=== PATIENT | female | born 1990 | race Caucasian/White ===

== ENCOUNTER 2019-09-25 08:31 | Emergency (ER) | payer OTHER ==
[2019-09-25] MEDS ORDERED: BUPIVACAINE 0.5% PF 30 ML VIAL SUBQ ONE (08:56)
[2019-09-25] MEDS ORDERED: BUFFERED LIDOCAINE 10 ML SYRINGE SUBQ STA (08:56)
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
[2019-09-25 10:07] VITALS: BP 130/84
== END 2019-09-25 10:08 | disposition home or self-care (01) ==
LOC: ED 08:31
DX: S91.212A Laceration without foreign body of left great toe with damage to nail, initial encounter (principal); X58.XXXA Exposure to other specified factors, initial encounter; Y93.55 Activity, bike riding; Y92.89 Other specified places as the place of occurrence of the external cause
CPT/HCPCS: 11720; 99282; 99283